=== PATIENT | female | born 1995 | race Caucasian/White ===

== ENCOUNTER 2016-10-21 18:54 | Emergency (ER) | payer SELFPAY ==
[~2016-10-21] VITALS: Ht 157.5 cm; Wt 70.3 kg
[2016-10-21 19:06] VITALS: BP_SYST 144
[2016-10-21] MEDS ORDERED: ACETAMINOPHEN 500 MG TABLET PO ONE (19:30)
[2016-10-21] MEDS ORDERED: KETOROLAC TROMETHAMINE 60 MG/2 ML VIAL IM ONE (20:30)
[2016-10-21] MEDS ORDERED: DIAZEPAM 10 MG/2 ML DISP.SYRIN IM ONE (20:30)
[2016-10-21] MEDS ORDERED: DIAZEPAM 5 MG TABLET (VALIUM) PO ONE (20:45)
[2016-10-21] MEDS ORDERED: IBUPROFEN 600 MG TABLET PO ONE (20:45)
[2016-10-21 21:03] VITALS: BP_SYST 136
== END 2016-10-21 21:03 | disposition home or self-care (01) ==
LOC: SED 18:54
DX: S16.1XXA Strain of muscle, fascia and tendon at neck level, initial encounter (principal); S00.03XA Contusion of scalp, initial encounter; W19.XXXA Unspecified fall, initial encounter; Y93.23 Activity, snow (alpine) (downhill) skiing, snowboarding, sledding, tobogganing and snow tubing; Y92.89 Other specified places as the place of occurrence of the external cause; Y99.8 Other external cause status
CPT/HCPCS: 70450; 72125; 81025; 99284; J1885; J3360